=== PATIENT | female | born 1990 | race Caucasian/White ===

== ENCOUNTER 2021-05-02 12:46 | Observation (INO) | payer BC ==
[~2021-05-02] VITALS: Ht 157.5 cm; Wt 69.0 kg
[2021-05-02] VITALS (12 sets, daily range): BP systolic 111–133; BP diastolic 67–85
[2021-05-02 13:16] LABS: BASOPHILS % (AUTO) 0.3 % (0-1); EOSINOPHILS % (AUTO) 0.3 % (0-6); HEMATOCRIT 47.2 % (35.0-45.0); HEMOGLOBIN 16.1 g/dl (12.0-16.0); LYMPHOCYTES # (AUTO) 2.5 X10'3 (1.1-4.8); LYMPHOCYTES % (AUTO) 19.3 % (21-51); MEAN CORPUSCULAR HEMOGLOBIN 32.4 PG (27.0-31.0); MEAN CORPUSCULAR HGB CONC 34.2 g/dL (33.0-36.5); MEAN CORPUSCULAR VOLUME 94.7 FL (78-98); MEAN PLATELET VOLUME 9.9 FL (7.4-10.4); NEUTROPHILS # (AUTO) 9.2 X10'3 (1.8-7.7); NEUTROPHILS % (AUTO) 72.1 % (42-75); PLATELET COUNT 206 X10'3 (140-440); RED BLOOD COUNT 4.99 X10'6 (4.20-5.60); RED CELL DISTRIBUTION WIDTH 12.4 % (11.5-14.5); WHITE BLOOD COUNT 12.8 X10'3 (4.5-11.0)
[2021-05-02 13:29] LABS: URINE HCG NEGATIVE (NEG)
[2021-05-02 13:35] LABS: CLARITY,URINE SLIGHTLY CLOUDY (Clear); COLOR,URINE YELLOW (Yellow); GLUCOSE, URINE NEGATIVE (Neg); KETONES,URINE 40 mg/dl (Neg); LEUKOCYTE ESTERASE ,URINE TRACE (Neg); NITRITES, URINE NEGATIVE (Neg); OCCULT BLOOD,URINE NEGATIVE (Neg); PROTEIN,URINE NEGATIVE (Neg); UROBILINOGEN,URINE 0.2 E.U/dL (0.2-1.0)
[2021-05-02 13:36] LABS: ALANINE AMINOTRANSFERASE 19 U/L (12-78); ALBUMIN 4.1 G/DL (3.4-5.0); ALBUMIN/GLOBULIN RATIO 1.2 (1.1-1.5); ALKALINE PHOSPHATASE 58 IU/L (46-116); AMYLASE 37 U/L (25-115); ANION GAP 13 (8-16); ASPARTATE AMINO TRANSFERASE 14 U/L (10-37); BILIRUBIN,TOTAL 1.4 MG/DL (0.1-1.0); BLOOD UREA NITROGEN 6 MG/DL (7-18); BUN/CREATININE RATIO 7.7 (6.6-38.0); CHLORIDE 104 MMOL/L (99-107); CREATININE 0.78 MG/DL (0.40-0.90); GLUCOSE 92 MG/DL (70-104); LIPASE < 50 U/L (73-393); POTASSIUM 3.6 MMOL/L (3.5-5.1); SODIUM 141 MMOL/L (135-145); TOTAL CARBON DIOXIDE 23.8 MMOL/L (24-32); TOTAL PROTEIN 7.6 G/DL (6.4-8.2); eGFR 87 ML/MIN
[2021-05-02 13:37] LABS: UA COLLECTION TYPE CLN CATCH MIDSTREAM
[2021-05-02 13:44] LABS: MUCUS STRANDS MANY /LPF (Neg); SQUAMOUS EPITHELIAL CELL,UR MANY /LPF (FEW); TRANSITIONAL EPI CELLS,URINE FEW /HPF
[2021-05-02 13:45] LABS: BACTERIA,URINE 3+ /HPF (Neg); RBC,URINE 0-2 /HPF (0-2); WBC,URINE 0-4 /HPF (0-4)
[2021-05-02] MEDS ORDERED: morphine 4 MG/ML inj SYRINge IV ONE (14:40)
[2021-05-02] MEDS: normal saline 1000ml 1,000 ML IV SCH ×2 (14:40→21:20)
[2021-05-02] MEDS ORDERED: NO HOME MEDS (15:29)
--- NOTE | 2021-05-02 16:10 | NUR ---
Pt arrived to surgical floor via wheelchair, and settled in room 346A. Call light within reach.
[2021-05-02] MEDS: ringers solution, lacted 1,000 ML IV SCH (16:26)
[2021-05-02] MEDS: piperacillin/tazo 3.375gm/50ml 50 ML IV SCH ×2 (16:26→23:50)
--- NOTE | 2021-05-02 17:45 | NUR ---
Pt transported to OR
--- NOTE | 2021-05-02 18:05 | NUR ---
Patient in room [facility]. I have received report from ISAURA toure and had the opportunity to ask questions and assume patient care.
--- NOTE | 2021-05-02 18:05 | NUR ---
Problems reprioritized. Patient report given, questions answered & plan of care reviewed with ISAURA Reyes.
[2021-05-02] MEDS ORDERED: proCHLORperazine 10 MG/2 ml inj IV PRN (18:10)
[2021-05-02] MEDS ORDERED: ringers solution, lacted 1,000 ML IV SCH (18:10)
[2021-05-02] MEDS ORDERED: morphine 4 MG/ML inj SYRINge IV PRN (18:10)
[2021-05-02] MEDS ORDERED: ondansetron/PF 4mg/2ml inj IV PRN (18:10)
[2021-05-02] MEDS ORDERED: meperidine/PF 25mg/ml syringe IV PRN ×3 (18:10)
[2021-05-02] MEDS ORDERED: morphine 2 MG/ML inj. syringe IV PRN (18:10)
[2021-05-02] MEDS ORDERED: fentaNYL/PF 50MCG/1 ML 2ML syringe ONE ×2 (18:36→19:27)
[2021-05-02] MEDS ORDERED: midazolam 1 mg/ML 2ml injection ONE (18:36)
[2021-05-02] MEDS ORDERED: rocuronium 10mg/ml inj IV ONE (18:38)
[2021-05-02] MEDS ORDERED: LIDOcaine 2% (20mg/ml) 5ml vial ONE (18:38)
[2021-05-02] MEDS ORDERED: dexamethasone sod phosphate 4mg/ml inj. ONE (18:40)
[2021-05-02] MEDS ORDERED: BUPIVAcaine 0.5% inj/PF 30 ML ONE (18:50)
[2021-05-02] MEDS ORDERED: LIDOcaine 1% 30ml preserv. free vial ONE (18:50)
[2021-05-02] MEDS ORDERED: esmolol inj. 10 ML IV ONE (19:58)
[2021-05-02] MEDS ORDERED: acetaminophen 1,000mg/100ml IV 100 ML IV ONE (19:58)
[2021-05-02] MEDS ORDERED: glycopyrrolate 0.2mg/ml inj ONE (19:58)
[2021-05-02] MEDS ORDERED: ondansetron/PF 4mg/2ml inj ONE (19:58)
[2021-05-02] MEDS ORDERED: neostigmine methylsulfate 1 MG/ML 10ml vial ONE (19:58)
[2021-05-02] MEDS ORDERED: metoprolol tartrate 1mg/ml inj IV ONE (19:58)
[2021-05-02] MEDS: Potassium Cl inj 20 MEQ in ringers solution, lacted 1,000 ML IV SCH (20:10)
[2021-05-02] MEDS ORDERED: HYDROcodone/acetaminophen 5mg/325mg tablet PO PRN (20:10)
--- NOTE | 2021-05-02 20:11 | NUR ---
PT AWAKE ALERT VSS NO PAIN YVETTE SAM SAT 99% CONT TO MONITOR Addendum: 05/02/21 at 2043 by Emilie Sanchez RN Amended: Links added.
--- NOTE | 2021-05-02 20:40 | NUR ---
PT CONCHITA MARTINES'S DENIES PAIN VSS MEETS CRITERIA TO DC BACK TO ROOM REPORT OFF TO KENNETH DELAROSA Addendum: 05/02/21 at 2042 by Emilie Sacnhez RN Amended: Links added.
--- NOTE | 2021-05-02 20:45 | NUR ---
Patient arrived to floor from surgery.
[2021-05-02] MEDS: HYDROcodone/acetaminophen 10/325mg tab PO PRN (20:50)
[2021-05-02] MEDS: ondansetron/PF 4mg/2ml inj IV PRN (21:03)
[2021-05-02] MEDS: ketorolac tromethamine 15mg/ml inj. IV SCH (23:06)
[2021-05-03] MEDS: HYDROcodone/acetaminophen 10/325mg tab PO PRN ×4 (00:53→14:05)
[2021-05-03] MEDS: Potassium Cl inj 20 MEQ in ringers solution, lacted 1,000 ML IV SCH ×3 (02:00→10:31)
[2021-05-03] MEDS: acetaminophen 325mg tablet PO SCH ×4 (02:00→19:33)
[2021-05-03] MEDS: normal saline 1000ml 1,000 ML IV SCH (04:00)
[2021-05-03] MEDS: ringers solution, lacted 1,000 ML IV SCH (04:00)
[2021-05-03 04:48] VITALS: BP 107/65
--- NOTE | 2021-05-03 06:10 | NUR ---
Patient in room [facility]. I have received report from ISAURA Feliz and had the opportunity to ask questions and assume patient care.
--- NOTE | 2021-05-03 06:24 | NUR ---
Problems reprioritized. Patient report given, questions answered & plan of care reviewed with ISAURA Vazquez.
[2021-05-03 06:30] VITALS: BP 107/65
[2021-05-03] MEDS: ketorolac tromethamine 15mg/ml inj. IV SCH ×2 (08:25→16:38)
[2021-05-03] MEDS: piperacillin/tazo 3.375gm/50ml 50 ML IV SCH (08:26)
[2021-05-03 10:08] LABS: BASOPHILS % (AUTO) 0.1 % (0-1); EOSINOPHILS % (AUTO) 0 % (0-6); HEMATOCRIT 41.5 % (35.0-45.0); HEMOGLOBIN 14.4 g/dl (12.0-16.0); LYMPHOCYTES # (AUTO) 0.9 X10'3 (1.1-4.8); MEAN CORPUSCULAR HEMOGLOBIN 32.4 PG (27.0-31.0); MEAN CORPUSCULAR HGB CONC 34.7 g/dL (33.0-36.5); MEAN CORPUSCULAR VOLUME 93.4 FL (78-98); MEAN PLATELET VOLUME 10.3 FL (7.4-10.4); MONOCYTES # (AUTO) 0.7 X10'3 (0-0.9); MONOCYTES % (AUTO) 5.7 % (2-12); NEUTROPHILS # (AUTO) 11.3 X10'3 (1.8-7.7); NEUTROPHILS % (AUTO) 87.2 % (42-75); PLATELET COUNT 209 X10'3 (140-440); RED BLOOD COUNT 4.44 X10'6 (4.20-5.60); RED CELL DISTRIBUTION WIDTH 12.3 % (11.5-14.5); WHITE BLOOD COUNT 12.9 X10'3 (4.5-11.0)
[2021-05-03 10:15] LABS: ALANINE AMINOTRANSFERASE 21 U/L (12-78); ALBUMIN 3.2 G/DL (3.4-5.0); ALBUMIN/GLOBULIN RATIO 0.9 (1.1-1.5); ALKALINE PHOSPHATASE 51 IU/L (46-116); ANION GAP 10 (8-16); ASPARTATE AMINO TRANSFERASE 15 U/L (10-37); BILIRUBIN,TOTAL 0.5 MG/DL (0.1-1.0); BLOOD UREA NITROGEN 6 MG/DL (7-18); BUN/CREATININE RATIO 6.7 (6.6-38.0); CALCIUM 8.6 MG/DL (8.5-10.1); CHLORIDE 106 MMOL/L (99-107); GLUCOSE 138 MG/DL (70-104); POTASSIUM 4.1 MMOL/L (3.5-5.1); SODIUM 140 MMOL/L (135-145); TOTAL CARBON DIOXIDE 24.5 MMOL/L (24-32); TOTAL PROTEIN 6.6 G/DL (6.4-8.2); eGFR 74 ML/MIN
[2021-05-03] MEDS: ondansetron/PF 4mg/2ml inj IV PRN ×2 (10:26→16:38)
[2021-05-03 11:00] VITALS: BP 109/66
[2021-05-03] MEDS ORDERED: HYDR-3964 PO (15:33)
--- NOTE | 2021-05-03 18:50 | NUR ---
Problems reprioritized. Patient report given, questions answered & plan of care reviewed with ISAURA Devi.
[2021-05-03] MEDS: lactobacillus rhamnosus 10,000 MMU CELLS/CAPSULE PO SCH (19:31)
[2021-05-03 20:00] VITALS: BP 129/80
[2021-05-03] MEDS ORDERED: Melatonin 3mg tablet PO SCH (22:45)
[2021-05-04] MEDS: ketorolac tromethamine 15mg/ml inj. IV SCH ×2 (00:11→08:45)
[2021-05-04] MEDS: acetaminophen 325mg tablet PO SCH ×2 (01:52→08:45)
--- NOTE | 2021-05-04 06:42 | NUR ---
Patient in room [facility]. I have received report from ISAURA Devi and had the opportunity to ask questions and assume patient care.
[2021-05-04 07:00] VITALS: BP 98/61
[2021-05-04] MEDS: lactobacillus rhamnosus 10,000 MMU CELLS/CAPSULE PO SCH (08:44)
[2021-05-04 11:00] VITALS: BP 109/62
--- NOTE | 2021-05-04 14:30 | NUR ---
Pt discharged to home with all belongings, in private vehicle, accompanied by boyfriend. Discharge instructions and medications reviewed. New prescription for pain medication provided to pt with instructions to take to pharmacy of choice to fill. Office number for Dr Little provided with instructions to call and set up follow up appointment. Pt educated on signs/symptoms of infection and instructed to contact Dr Luna office with any concerns. Pt stated understanding and willingness to comply with all discharge instructions. IV DC'd, cannula intact. Pt escorted to front lobby via wheelchair by PCT.
[2021-05-04] MEDS ORDERED: Melatonin 3mg tablet PO SCH (21:00)
== END 2021-05-04 14:30 | disposition home or self-care (01) ==
LOC: ER 12:47 → ED HOLD 14:45 → SUR 3N 16:10
PROVIDERS: ADMIT Surgery; ATTEND Surgery
DX: K35.80 Unspecified acute appendicitis (principal); Z20.822 Contact with and (suspected) exposure to COVID-19; Z98.890 Other specified postprocedural states
CPT/HCPCS: 36415; 44970; 74176; 80053; 81001; 81025; 82150; 82948; 83690; 85025; 87081; 87635; 96361; 96365; 96366; 96375; 96376; 99284; G0378; J0131; J1100; J1885; J2001; J2250; J2270; J2405; J2543; J2710; J3010; J3480; S2900; A4215; A4618; J3490; J7120